=== PATIENT | male | born 1980 | race Caucasian/White ===

== ENCOUNTER 2016-05-30 20:46 | Emergency (ER) | payer MEDICAID ==
[~2016-05-30] VITALS: Ht 182.9 cm; Wt 79.4 kg
[~2016-05-30 20:46] MED LIST: AMIT10TA6 PO; CLON2TAB4 PO; MIRT45TA5 PO; OMEP20CA10 PO; QUET100T PO; QUET200T PO
--- NOTE | 2016-05-30 21:28 | NUR ---
PT WAS TOLD TO GO TO 1B,WANTED TO SPEND THE WHOLE NIGHT HERE,ASK WHO THE DR IS,AND HE SAID HE WILL GO TO ANOTHER HOSP TO SLEEP FOR THE NIGHT.JANEY.
--- NOTE | 2016-05-30 21:39 | NUR ---
ELOPED BEFORE SEEN BY ERMD.
== END 2016-05-30 21:40 | disposition left against medical advice (07) ==
LOC: ER 20:52
DX: Z53.21 Procedure and treatment not carried out due to patient leaving prior to being seen by health care provider (principal)
CPT/HCPCS: A4663

== ENCOUNTER 2016-08-11 00:29 | Emergency (ER) | payer MEDICAID ==
[~2016-08-11] VITALS: Ht 172.7 cm; Wt 68.0 kg
--- NOTE | 2016-08-11 00:38 | NUR ---
Patient brought into ER by rescue accopamied by [employer] from home in four point restraints for C/O overdose of 5 tabs of klonopin of unknown strenghth, police report they were called out to pt's residence due to pt breaking things, yelling at family, and for threatening behavior... pt is alert, oriented x 3, no resp distress noted or reported upon assessment, pt is ...md at bedside...
--- NOTE | 2016-08-11 00:45 | NUR ---
pt is yelling, screaming obcenities, threatening staff, spitting at staff, pt continues on 4 point restraint for his behavior... provided water at pts request...will continue to monitor for safety, comfort, and pain...
[2016-08-11 01:29] LABS: BASOPHILS % (AUTO) 0.3 % (0.0-2.0); EOSINOPHILS # (AUTO) 0.1 K/uL (0.0-0.7); EOSINOPHILS % (AUTO) 0.9 % (0.0-7.0); HEMATOCRIT 33.1 % (40-50); LYMPHOCYTES # (AUTO) 0.9 K/UL (0.8-4.8); MEAN CORPUSCULAR HEMOGLOBIN 27.3 UUG (27.0-31.0); MEAN CORPUSCULAR HGB CONC 33 g/dL (32.0-37.0); MEAN CORPUSCULAR VOLUME 81.9 FL (82.0-92.0); MONOCYTES # (AUTO) 0.4 K/UL (0.1-1.30); NEUTROPHILS # (AUTO) 6.5 K/UL (1.8-8.9); NEUTROPHILS % (AUTO) 81.8 % (38.5-71.5); PLATELET COUNT (AUTO) 254 K/UL (150-450); RED BLOOD CELL COUNT(AUTO) 4.04 MIL/UL (4.7-6.1); WHITE BLOOD COUNT (AUTO) 7.9 K/UL (4.0-11.2)
[2016-08-11 01:43] LABS: ALANINE AMINOTRANSFERASE 21 U/L (16-63); ALKALINE PHOSPHATASE 110 U/L (50-136); ASPARTATE AMINOTRANSFERASE 25 U/L (15-37); BILIRUBIN,DIRECT 0.1 mg/dL (0.0-0.2); BILIRUBIN,TOTAL 0.4 mg/dL (0.2-1.0); CARBON DIOXIDE 25 mmol/L (21-32); CHLORIDE 108 mmol/L (98-107); CREATININE 1.6 mg/dL (0.6-1.3); TOTAL PROTEIN, SERUM 7.7 g/dL (6.4-8.2); UREA NITROGEN, BLOOD 19 mg/dL (7-18)
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
[2016-08-11 01:46] LABS: ETHANOL < 3 MG/DL (0-0)
[2016-08-11 01:47] LABS: ACETAMINOPHEN < 2.0 ug/mL (10-30)
[2016-08-11 01:54] LABS: GLUCOSE 77 mg/dL (74-106)
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
[2016-08-11 04:23] LABS: *BILIRUBIN,URIN NEGATIVE (NEGATIVE); *BLOOD, URINE NEGATIVE (NEGATIVE); *CLARITY,URINE CLEAR (CLEAR); *COLOR,URINE YELLOW (YELLOW); *KETONES,URINE NEGATIVE (NEGATIVE); *PROTEIN,URINE TRACE (NEGATIVE); *UROBILINOGEN,URINE 0.2 E.U./dl (NORMAL); LEUKOCYTE ESTERASE ,URINE NEGATIVE (NEGATIVE); NITRITE, URINE NEGATIVE (NEGATIVE); PH,URINE 5.5 (5.0-8.0); UGLUCOSE NEGATIVE (NEGATIVE)
[2016-08-11 04:30] LABS: RBC,URINE NONE SEEN /HPF (0-3)
[2016-08-11 04:31] LABS: BACTERIA,URINE NONE SEEN /HPF (NONE SEEN); SQUAMOUS EPITHELIAL CELL,UR FEW /HPF (NONE SEEN); WBC,URINE 0-3 /HPF (0-3)
[2016-08-11 04:45] LABS: *AMPHETAMINE, URINE NEGATIVE (NEGATIVE); *BARBITURATE, URINE NEGATIVE (NEGATIVE); *CANNABINOID, URINE POSITIVE (NEGATIVE); *COCCAINE, URINE NEGATIVE (NEGATIVE); *OPIATE, URINE NEGATIVE (NEGATIVE); *PHENCYCLIDINE SCREEN,URINE NEGATIVE (NEGATIVE)
--- NOTE | 2016-08-11 04:55 | NUR ---
SECURITY NOW STANDING OUTSIDE OF DOORWAY, SITTER WAS NEEDED IN ANOTHER DEPT...
--- NOTE | 2016-08-11 05:18 | NUR ---
PER MATEO, CONTACTED [facility] STEAM BLOCKER, CONTACTED FADUMO PEÑA , [facility] STATES HE IS ON HIS WAY....
--- NOTE | 2016-08-11 05:30 | NUR ---
SECURITY NOW SITTING IN ROOM WITH PT...
--- NOTE | 2016-08-11 06:11 | NUR ---
contacted [facility] Non-emergency number , spoke with tumbler machine operator [phone], states paper cutting machine operator will be dispatched as soon as possible...
--- NOTE | 2016-08-11 07:19 | NUR ---
report given to dayshift nurse...
--- NOTE | 2016-08-11 07:40 | NUR ---
[facility] arrived in ER.
--- NOTE | 2016-08-11 08:08 | NUR ---
[employer] bedside, will wait for MD to determine d/c status.
--- NOTE | 2016-08-11 08:10 | NUR ---
Released left wrist from restraint.
--- NOTE | 2016-08-11 08:20 | NUR ---
Released left ankle from restraint, pt willing to use urinal now.
--- NOTE | 2016-08-11 08:22 | NUR ---
[employer] leaving ER, will be in area awaiting recall request by staff if needed.
--- NOTE | 2016-08-11 08:35 | NUR ---
Pt reevaluated by MD, released from restraints per MD
[2016-08-11 09:06] VITALS: BP 125/76
--- NOTE | 2016-08-11 09:06 | NUR ---
Gave pt d/c instructions, verbalized understanding.
--- NOTE | 2016-08-11 09:07 | NUR ---
pt states he will call for a ride. security escorting pt to waiting room.
== END 2016-08-11 09:06 | disposition home or self-care (01) ==
LOC: ER 00:32
DX: F31.9 Bipolar disorder, unspecified (principal); F19.10 Other psychoactive substance abuse, uncomplicated; T42.4X1A Poisoning by benzodiazepines, accidental (unintentional), initial encounter; F17.200 Nicotine dependence, unspecified, uncomplicated; F12.10 Cannabis abuse, uncomplicated; F41.9 Anxiety disorder, unspecified; Y92.89 Other specified places as the place of occurrence of the external cause; Z93.3 Colostomy status
CPT/HCPCS: 36415; 70030-TC; 80307; 85025; A4663; C1758; G0480; G0480-TC

== ENCOUNTER 2016-11-06 00:12 | Emergency (ER) | payer MEDICAID ==
[~2016-11-06] VITALS: Ht 185.4 cm; Wt 86.2 kg
--- NOTE | 2016-11-06 00:16 | NUR ---
[facility] ARRIVED WITH THE PT. DR PIERCE SAW THE PT AND VERBALLY STATED THAT THE PT WAS ON A 5150 PER ER MD. I THEN CALLED SECURITY FOR A SITTER, AND WAS INFORMED THAT NO SECURIRTY AVAIL CAIT DORSEY ONLY 2 CAME TO WORK. I THEN INFORMED THE PT THAT HE COULD NOT LEAVE THAT HE WAS ON A 5150 HOLD AND THAT THE DOCTOR HAD STATED IF HE ATTEMPTED TO LEAVE I WAS TO PLACE RESTRAINTS ON. THE PT AGREED THAT HE WOULD STAY ON THE GUERNEY AND NOT LEAVE. PT AT THIS TIME TALKING TO HIMSELF OUTLOUD.
[2016-11-06 00:57] LABS: BASOPHILS % (AUTO) 0.3 % (0.0-2.0); EOSINOPHILS # (AUTO) 0.1 K/uL (0.0-0.7); EOSINOPHILS % (AUTO) 1.5 % (0.0-7.0); HEMATOCRIT 35.2 % (40-50); HEMOGLOBIN 11.4 G/DL (14.0-18.0); LYMPHOCYTES # (AUTO) 0.7 K/UL (0.8-4.8); LYMPHOCYTES % (AUTO) 8.7 % (20.5-51.5); MEAN CORPUSCULAR HEMOGLOBIN 26.6 UUG (27.0-31.0); MEAN CORPUSCULAR HGB CONC 33 g/dL (32.0-37.0); MONOCYTES # (AUTO) 0.3 K/UL (0.1-1.30); MONOCYTES % (AUTO) 4.2 % (0.0-11.0); NEUTROPHILS # (AUTO) 6.6 K/UL (1.8-8.9); NEUTROPHILS % (AUTO) 85.3 % (38.5-71.5); PLATELET COUNT (AUTO) 258 K/UL (150-450); WHITE BLOOD COUNT (AUTO) 7.7 K/UL (4.0-11.2)
[2016-11-06 01:08] LABS: CARBON DIOXIDE 29 mmol/L (21-32); CHLORIDE 107 mmol/L (98-107); CREATININE 1.5 mg/dL (0.6-1.3); GLUCOSE 107 mg/dL (74-106); POTASSIUM 4.2 mmol/L (3.5-5.1); UREA NITROGEN, BLOOD 24 mg/dL (7-18)
[2016-11-06 01:20] LABS: ETHANOL < 3 MG/DL (0-0)
[2016-11-06 01:21] LABS: THYROID STIMULATING HORMONE 1.038 mIU/mL (0.358-3.740)
[2016-11-06 01:22] LABS: ALANINE AMINOTRANSFERASE 33 U/L (16-63); ALKALINE PHOSPHATASE 126 U/L (50-136); ASPARTATE AMINOTRANSFERASE 18 U/L (15-37); BILIRUBIN,DIRECT 0.1 mg/dL (0.0-0.2); BILIRUBIN,TOTAL 0.2 mg/dL (0.2-1.0); TOTAL PROTEIN, SERUM 7.3 g/dL (6.4-8.2)
[2016-11-06 01:24] LABS: ACETAMINOPHEN < 2.0 ug/mL (10-30)
--- NOTE | 2016-11-06 01:40 | NUR ---
LAB MARÍA THE BLOOD/URINE SENT/PT GIVEN GRAM CRACKERS AND MILK, ALSO WARM BLANKET GIVEN, ADVISED THE PT TO SLEEP AND TO STAY ON THE GUERNEY.
[2016-11-06 01:49] LABS: *BILIRUBIN,URIN NEGATIVE (NEGATIVE); *BLOOD, URINE NEGATIVE (NEGATIVE); *CLARITY,URINE CLEAR (CLEAR); *COLOR,URINE YELLOW (YELLOW); *KETONES,URINE NEGATIVE (NEGATIVE); *PROTEIN,URINE TRACE (NEGATIVE); *UROBILINOGEN,URINE 0.2 E.U./dl (NORMAL); LEUKOCYTE ESTERASE ,URINE NEGATIVE (NEGATIVE); NITRITE, URINE NEGATIVE (NEGATIVE); PH,URINE 5.5 (5.0-8.0); UGLUCOSE NEGATIVE (NEGATIVE)
[2016-11-06 01:57] LABS: BACTERIA,URINE NONE SEEN /HPF (NONE SEEN); RBC,URINE 0-3 /HPF (0-3); SQUAMOUS EPITHELIAL CELL,UR FEW /HPF (NONE SEEN); WBC,URINE 0-3 /HPF (0-3)
[2016-11-06 02:07] LABS: *AMPHETAMINE, URINE NEGATIVE (NEGATIVE); *BARBITURATE, URINE NEGATIVE (NEGATIVE); *CANNABINOID, URINE POSITIVE (NEGATIVE); *COCCAINE, URINE NEGATIVE (NEGATIVE); *OPIATE, URINE NEGATIVE (NEGATIVE); *PHENCYCLIDINE SCREEN,URINE NEGATIVE (NEGATIVE)
--- NOTE | 2016-11-06 02:35 | NUR ---
CALLED RAFAEL HOLLIS THE PET SUPERVISOR BRAIDING, STATED HE WOULD BE IN AT ABOUT 0630.
--- NOTE | 2016-11-06 05:24 | NUR ---
PT IN BED, NO DISTRESS NOTED, WATCHING TV.
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
--- NOTE | 2016-11-06 07:22 | NUR ---
SBAR REPORT TO SONAM RN, PT WATCHING TV.
--- NOTE | 2016-11-06 07:25 | NUR ---
No copy of 5150 from police made or seen in chart or ER registration or doctor's file, pending RAFAEL Hawkins to evaluate patient at this time
--- NOTE | 2016-11-06 07:36 | NUR ---
Breakfast tray ordered. Patient is calm & cooperative at this time, still for psych evaluation
--- NOTE | 2016-11-06 08:09 | NUR ---
Patient remains calm & cooperative since 714, "does not meet 5150 psyc HOLD" per therapeutic activities services worker Emir Hawkins, pending discharge papers from ER doctor. Patient ate 90% of breakfast tray.
--- NOTE | 2016-11-06 08:37 | NUR ---
Patient is on the phone, trying to get a ride home.
--- NOTE | 2016-11-06 08:46 | NUR ---
Patient discharged to home in stable conditon. Written and verbal after care instructions given to patient. Patient verbalizes understanding of instructions.
== END 2016-11-06 08:49 | disposition home or self-care (01) ==
LOC: ER 00:12
DX: S09.8XXA Other specified injuries of head, initial encounter (principal); S00.03XA Contusion of scalp, initial encounter; F32.9 Major depressive disorder, single episode, unspecified; S00.81XA Abrasion of other part of head, initial encounter; M54.2 Cervicalgia; Y04.2XXA Assault by strike against or bumped into by another person, initial encounter; Y93.89 Activity, other specified; Y92.89 Other specified places as the place of occurrence of the external cause; Y99.8 Other external cause status
CPT/HCPCS: 36415; 70030-TC; 70450; 72125; 80307; 84443; 85025; 85730; A4663; G0480; G0480-TC

== ENCOUNTER 2016-11-11 17:03 | Inpatient (IN) | payer MEDICAID ==
[~2016-11-11] VITALS: Ht 182.9 cm; Wt 79.4 kg
[2016-11-11] MEDS: MEROPENEM 0.5 G in IV NORMAL SALINE 50 ML IV SCH (00:40)
[2016-11-11] MEDS ORDERED: DIVA500T2 PO (17:14)
[2016-11-11] MEDS ORDERED: IV NORMAL SALINE 1000 ML BAG IV ONE ×2 (17:45→20:00)
[2016-11-11] MEDS ORDERED: VANCOMYCIN IV 1,000 MG in IV DEXTROSE 5% 250 ML IV ONE (17:45)
--- NOTE | 2016-11-11 18:00 | NUR ---
PT IS IN ROOM #2A. DR MUNGUIA EVALUATED THE PT.
[2016-11-11] MEDS ORDERED: VANCOMYCIN IV 200 ML ONE (18:11)
[2016-11-11 18:16] LABS: BASOPHILS # (AUTO) 0.1 K/uL (0.0-8.0); BASOPHILS % (AUTO) 1.1 % (0.0-2.0); EOSINOPHILS % (AUTO) 0.1 % (0.0-7.0); HEMATOCRIT 40.5 % (40-50); HEMOGLOBIN 13.4 G/DL (14.0-18.0); LYMPHOCYTES # (AUTO) 0.5 K/UL (0.8-4.8); LYMPHOCYTES % (AUTO) 5.2 % (20.5-51.5); MEAN CORPUSCULAR HEMOGLOBIN 26.7 UUG (27.0-31.0); MEAN CORPUSCULAR HGB CONC 33 g/dL (32.0-37.0); MONOCYTES # (AUTO) 0.4 K/UL (0.1-1.30); MONOCYTES % (AUTO) 3.9 % (0.0-11.0); NEUTROPHILS % (AUTO) 89.7 % (38.5-71.5); PLATELET COUNT (AUTO) 254 K/UL (150-450)
[2016-11-11 18:17] LABS: CREATININE 1.8 mg/dL (0.6-1.3); POTASSIUM 3.7 mmol/L (3.5-5.1)
[2016-11-11 18:23] LABS: BILIRUBIN,DIRECT 0.3 mg/dL (0.0-0.2); BILIRUBIN,TOTAL 1.1 mg/dL (0.2-1.0); TOTAL PROTEIN, SERUM 8.8 g/dL (6.4-8.2)
--- NOTE | 2016-11-11 18:55 | NUR ---
REPORT WAS GIVEN TO VOCATIONAL TEACHER RN.
--- NOTE | 2016-11-11 19:08 | NUR ---
Received report from NAOMI Nunez. Assumed care of pt at this time. Admission pending.
--- NOTE | 2016-11-11 19:39 | NUR ---
Pt c/o pain. notified. Pt medicated for pain. Will monitor for effects of medication. Order was placed as "misc" 1mg of dilaudid given.
--- NOTE | 2016-11-11 19:44 | NUR ---
Report called to NAOMI Stone. Preparing to transfering pt to the floor.
[2016-11-11] MEDS ORDERED: MISCELLANEOUS MED IV PRN (19:45)
[2016-11-11] MEDS ORDERED: HYDROMORPHONE 2 MG/1 ML DISP.SYRIN ONE (19:52)
[2016-11-11] MEDS ORDERED: ONDANSETRON 4 MG/2 ML VIAL IV PRN (20:00)
[2016-11-11] MEDS ORDERED: VANCOMYCIN IV 200 ML IV ONE (20:00)
[2016-11-11] MEDS ORDERED: ACETAMINOPHEN 325 MG TABLET PO PRN (20:00)
[2016-11-11 20:45] VITALS: BP 130/68
[2016-11-11] MEDS ORDERED: CLONAZEPAM PO SCH (21:00)
[2016-11-11] MEDS ORDERED: Medication Not On Formulary EA (Mirtazapine 1 TAB) PO SCH (21:00)
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
[2016-11-11] MEDS: QUETIAPINE FUMARATE 200 MG TABLET PO SCH (21:42)
[2016-11-11] MEDS ORDERED: QUETIAPINE FUMARATE 200 MG TABLET ONE (21:45)
--- NOTE | 2016-11-11 21:45 | NUR ---
pt given tylenol prn for temperature 100.0. pt refused ice bags and other comfort measures despite education. tolerating IV fluids well.
[2016-11-11] MEDS ORDERED: ACETAMINOPHEN 325 MG TABLET ONE (21:53)
[2016-11-11] MEDS ORDERED: MEROPENEM 500 MG VIAL IV ONE (21:58)
[2016-11-12 00:04] VITALS: BP 116/62
[2016-11-12] MEDS ORDERED: ACETAMINOPHEN 325 MG TABLET PO PRN (01:45)
--- NOTE | 2016-11-12 02:00 | NUR ---
pt temperature 100.7 MD was made aware and pt given tylenol 650mg po one time for increased temp. Will continue to monitor.
[2016-11-12 04:58] VITALS: BP 101/62
[2016-11-12] MEDS ORDERED: MEROPENEM 500 MG VIAL IV ONE (05:25)
[2016-11-12] MEDS: MEROPENEM 0.5 G in IV NORMAL SALINE 50 ML IV SCH ×2 (06:06→13:56)
--- NOTE | 2016-11-12 06:17 | NUR ---
pt sleeping intermittently. Tolerating IV antibiotics well. Pt temp WNL 98.5. No acute distress noted.
[2016-11-12 06:42] LABS: BASOPHILS % (AUTO) 0.5 % (0.0-2.0); EOSINOPHILS # (AUTO) 0.1 K/uL (0.0-0.7); EOSINOPHILS % (AUTO) 1.3 % (0.0-7.0); LYMPHOCYTES # (AUTO) 0.7 K/UL (0.8-4.8); MEAN CORPUSCULAR HEMOGLOBIN 26.7 UUG (27.0-31.0); MEAN CORPUSCULAR HGB CONC 33 g/dL (32.0-37.0); MEAN CORPUSCULAR VOLUME 81.5 FL (82.0-92.0); MONOCYTES # (AUTO) 0.5 K/UL (0.1-1.30); MONOCYTES % (AUTO) 6.5 % (0.0-11.0); NEUTROPHILS # (AUTO) 7.1 K/UL (1.8-8.9); NEUTROPHILS % (AUTO) 83.7 % (38.5-71.5); PLATELET COUNT (AUTO) 210 K/UL (150-450); WHITE BLOOD COUNT (AUTO) 8.4 K/UL (4.0-11.2)
[2016-11-12 06:58] LABS: HEMATOCRIT 34.2 % (40-50); HEMOGLOBIN 11.3 G/DL (14.0-18.0); RED BLOOD CELL COUNT(AUTO) 4.19 MIL/UL (4.7-6.1)
[2016-11-12 07:05] LABS: BILIRUBIN,TOTAL 1.1 mg/dL (0.2-1.0); CREATININE 1.8 mg/dL (0.6-1.3); POTASSIUM 3.5 mmol/L (3.5-5.1)
--- NOTE | 2016-11-12 08:00 | NUR ---
Pt noted swelling on right side of face - offered ice pack. Pt request not to use ice pcak for the mean time due to pt wants to sleep in. right forehead noted blistered skin with greenish fluid inside. Pt not having double vision but unable to open his right eye due to swelling. Pt has good balance when ambulating. Pt denies any c/o pain. IV on left wrist infiltrated. Started new IV on left hand #22 gauge. Discussed plan of care with pt re: fall precaution, pain management, ice pack on swelling. Pt agreeable with plan of care.
[2016-11-12] MEDS ORDERED: PANTOPRAZOLE SODIUM 40 MG VIAL IV SCH (09:00)
[2016-11-12] MEDS: QUETIAPINE FUMARATE 100 MG TABLET PO SCH (09:39)
[2016-11-12] MEDS: DIVALPROEX 500 MG TABLET.DR PO SCH ×2 (09:39→16:21)
[2016-11-12] MEDS ORDERED: CLONAZEPAM 1 MG TABLET PO PRN (09:45)
[2016-11-12] MEDS: VANCOMYCIN IV 1,250 MG in IV DEXTROSE 5% 500 ML IV SCH (09:45)
[2016-11-12 10:08] LABS: IRON, SERUM 17 ug/dL (50-175)
[2016-11-12] MEDS: FAMOTIDINE. 20 MG/2 ML VIAL IV SCH (11:12)
[2016-11-12 11:14] VITALS: BP 113/62
--- NOTE | 2016-11-12 13:27 | NUR ---
Clinical Pharmacy Note: Vancomycin Dosing per Pharmacy Subjective: Vancomycin IV to start on this 36 yo male patient for facial cellulitis Patient had vancomycin 1gm IVPB x1 in ED on 11/11 at 1800 Objective: BUN 22/Scr 1.8 WBC 8.4 Temperature 98.5 ht: 6' wt 175 lb Assessment/Plan: Will start vancomycin 1250mg IVPB Q17hr for a predicted vancomycin steady state trough level of 15.8 mcg/ml. 1st dose is due today at 1000. Will draw a vancomycin trough level prior to the 4th dose of vancomycin (not ordered yet). Will monitor renal function and adjust vancomycin dose, if needed, should renal function change significantly. Will follow daily.
[2016-11-12] MEDS: IV NS 1000 ML 1,000 ML IV PRN (13:56)
[2016-11-12 15:07] VITALS: BP 118/64
[2016-11-12] MEDS: ACETAMINOPHEN 325 MG TABLET PO PRN (16:22)
--- NOTE | 2016-11-12 17:45 | NUR ---
1115 Seroquel and tylenol taken out of pyxsis at machinist 2nd shift.
--- NOTE | 2016-11-12 17:55 | NUR ---
Pt is in no acute distress. Call light is within reach. plan of care effective.
[2016-11-12 20:00] VITALS: BP 113/66
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
[2016-11-12] MEDS: AMITRIPTYLINE HCL 10 MG TABLET PO SCH (21:00)
[2016-11-12] MEDS: QUETIAPINE FUMARATE 200 MG TABLET PO SCH (21:13)
[2016-11-12] MEDS: MIRTAZAPINE 15 MG TABLET PO SCH (21:13)
[2016-11-12] MEDS: PIPERACILLIN/TAZOBACTAM/D5W 3.375 G in PREMIXED 1 EACH IV SCH (21:18)
[2016-11-13] MEDS: VANCOMYCIN IV 1,250 MG in IV DEXTROSE 5% 500 ML IV SCH (03:23)
[2016-11-13 04:00] VITALS: BP 121/62
--- NOTE | 2016-11-13 04:07 | NUR ---
Pt asleep in room. No s/s of reaction to current vancomycin IV antibiotics. No increase swelling present to right facial side. Ice bag applied and states he is still able to see with both eyes.
[2016-11-13 06:33] LABS: EOSINOPHILS # (AUTO) 0.4 K/uL (0.0-0.7); EOSINOPHILS % (AUTO) 5.2 % (0.0-7.0); HEMATOCRIT 30.5 % (40-50); HEMOGLOBIN 10.1 G/DL (14.0-18.0); LYMPHOCYTES # (AUTO) 0.6 K/UL (0.8-4.8); LYMPHOCYTES % (AUTO) 7.7 % (20.5-51.5); MEAN CORPUSCULAR HEMOGLOBIN 27.1 UUG (27.0-31.0); MEAN CORPUSCULAR HGB CONC 33 g/dL (32.0-37.0); MEAN CORPUSCULAR VOLUME 81.8 FL (82.0-92.0); MONOCYTES # (AUTO) 0.4 K/UL (0.1-1.30); MONOCYTES % (AUTO) 5.2 % (0.0-11.0); NEUTROPHILS # (AUTO) 6.5 K/UL (1.8-8.9); NEUTROPHILS % (AUTO) 81.9 % (38.5-71.5); PLATELET COUNT (AUTO) 210 K/UL (150-450); RED BLOOD CELL COUNT(AUTO) 3.73 MIL/UL (4.7-6.1); WHITE BLOOD COUNT (AUTO) 7.9 K/UL (4.0-11.2)
[2016-11-13] MEDS: PIPERACILLIN/TAZOBACTAM/D5W 3.375 G in PREMIXED 1 EACH IV SCH ×3 (06:43→23:58)
[2016-11-13 07:24] LABS: CREATININE 1.5 mg/dL (0.6-1.3); MAGNESIUM 1.8 mg/dL (1.8-2.4); PHOSPHOROUS 2.5 mg/dL (2.5-4.9); POTASSIUM 3.9 mmol/L (3.5-5.1)
--- NOTE | 2016-11-13 08:00 | NUR ---
AWAKE ALERT COOPERATE NO SOB OR PAIN AT THIS TIME UP AMB WELL ICE PK ON FACE RESTING IN ROOM WITH CALL AJ IN REACH
[2016-11-13] MEDS: DIVALPROEX 500 MG TABLET.DR PO SCH ×3 (08:33→17:00)
[2016-11-13] MEDS: FAMOTIDINE. 20 MG/2 ML VIAL IV SCH (08:33)
[2016-11-13] MEDS: QUETIAPINE FUMARATE 100 MG TABLET PO SCH (08:33)
[2016-11-13] MEDS: IV NS 1000 ML 1,000 ML IV PRN (08:39)
--- NOTE | 2016-11-13 10:00 | NUR ---
DR DELUCAN SEEN PATIENT AND LAB RESULT AND ORDER IN CHART
[2016-11-13 11:20] VITALS: BP 120/60
--- NOTE | 2016-11-13 12:23 | NUR ---
Clinical Pharmacy Note: Vancomycin Dosing per Pharmacy Subjective: Vancomycin IV to continue on this 36 yo male patient for facial cellulitis Objective: BUN 20/Scr 1.5 WBC 7.9 Temperature 98.4 ht: 6' wt 175 lb Assessment/Plan: Since srcr has decreased, will change vanco dose from vancomycin 1250mg IVPB Q17hr to vancomycin 1250mg IVPB q15h for predicted vanco trough level of 15 mcg/ml at steady state. 2nd dose is due today at 1800. Will draw a vancomycin trough level prior to the 4th dose of vancomycin (not ordered yet). Will monitor renal function and adjust vancomycin dose, if needed, should renal function change significantly. Will follow daily.
[2016-11-13] MEDS: ACETAMINOPHEN 325 MG TABLET PO PRN (14:29)
[2016-11-13 15:12] VITALS: BP 146/73
[2016-11-13] MEDS: HYDROCODONE/APAP 5-325MG TABLET PO PRN (16:53)
[2016-11-13] MEDS ORDERED: VANCOMYCIN IV 1,250 MG in IV DEXTROSE 5% 500 ML IV SCH (18:00)
--- NOTE | 2016-11-13 18:00 | NUR ---
STABLE CONDITION PAIN UNDER CONTROL SAFETY MEASURE PROVIDED CALL AJ IN REACH
--- NOTE | 2016-11-13 19:20 | NUR ---
PATIENT AWAKE, AMBULATE AND SMOKE TO THE PATIO, NO SOB NO CHEST PAIN, CONT TO MONITOR.
[2016-11-13 20:18] VITALS: BP 116/61
--- NOTE | 2016-11-13 22:00 | NUR ---
PATIENT REFUSED SCHEDULED MEDICATIONS, WANTING TO SMOKE TO THE PATIO, EXPLAINED TO PATIENT THAT ITS LATE NIGHT AND SMOKING PATIO IS CLOSED FOR THE DAY. ASKED PATIENT TO STAY IN HIS ROOM.
[2016-11-13] MEDS ORDERED: LACTOBACILLUS RHAMNOSUS GG 1 EACH CAPSULE ONE (22:10)
[2016-11-13] MEDS: MIRTAZAPINE 15 MG TABLET PO SCH (23:57)
[2016-11-13] MEDS: AMITRIPTYLINE HCL 10 MG TABLET PO SCH (23:57)
[2016-11-13] MEDS: LACTOBACILLUS RHAMNOSUS GG 1 EACH CAPSULE PO SCH (23:57)
[2016-11-13] MEDS: QUETIAPINE FUMARATE 200 MG TABLET PO SCH (23:58)
[2016-11-14 04:00] VITALS: BP 138/78
--- NOTE | 2016-11-14 04:24 | NUR ---
PATIENT IV SITE INFILTRATED, TRIED TO REINSERT IV BUT REFUSED START CURSING STAFF. USING FOUL LANGUAGES. WILL CONTINUE TO OFFER. .
--- NOTE | 2016-11-14 05:36 | NUR ---
PATIENT IN ROOM AWAKE ALERT, STILL REFUSED TO RE INSERT PERIPHERAL IV KEPT SAYING LATER, LATER, PATIENT GET AGITATED WHEN TRIED TO PUSH TO COOPERATE WITH CARE, WILL CONTINUE TO OFFER,
[2016-11-14] MEDS: PIPERACILLIN/TAZOBACTAM/D5W 3.375 G in PREMIXED 1 EACH IV SCH ×3 (06:00→21:53)
--- NOTE | 2016-11-14 06:50 | NUR ---
PATIENT IV ON LEFT HAND INFILTRATED, OFFER TO REINSERT IV LINE TO DIFFERENT SITE BUT REFUSED, PATIENT GET AGITATED, CURSING WITH FOUL LANGUAGE, UNABLE TO GIVE 0600 IV ABX. ENDORSE TO NEXT SHIFT.
--- NOTE | 2016-11-14 08:30 | NUR ---
AWAKE NO PAIN OR SOB SWELLING LESS AT RT SIDE OF FACE IV INFILTRATE D/C AT THIS TIME REFUSED TO RESTART AT THIS TIME WILL DO IT LATER RESTING WELL WITH CALL AJ IN REACH
[2016-11-14] MEDS: QUETIAPINE FUMARATE 100 MG TABLET PO SCH (09:00)
[2016-11-14] MEDS: DIVALPROEX 500 MG TABLET.DR PO SCH ×2 (09:00→17:00)
--- NOTE | 2016-11-14 09:30 | NUR ---
REFUSED PO MEDICINE THIS AM DR MARTINEZ WAS NOTIFY
--- NOTE | 2016-11-14 10:00 | NUR ---
REFUSED TO RESTART A NEW IV LINE FOR ANTIBIOTICS DR MARTINEZ WAS INFORM NO NEW ORDER WILL TRY AGAIN
[2016-11-14 12:00] VITALS: BP 122/71
--- NOTE | 2016-11-14 12:30 | NUR ---
RESTART A NEW IV LINE BUT UNABLE TO INSERT IT PATIENT START ANXIUOS AND REQUEST TO DO AGAIN LATER DR MARTINEZ WAS INFORM STATE WILL CHANGE ANTIBIOTICS TO PO
[2016-11-14] MEDS ORDERED: VANCOMYCIN IV 1,250 MG in IV DEXTROSE 5% 500 ML IV SCH (13:00)
[2016-11-14] MEDS: LACTOBACILLUS RHAMNOSUS GG 1 EACH CAPSULE PO SCH ×2 (13:03→21:53)
[2016-11-14] MEDS: FAMOTIDINE 20 MG TABLET PO SCH (13:03)
--- NOTE | 2016-11-14 14:05 | NUR ---
Clinical Pharmacy Note: Vancomycin Dosing per Pharmacy Subjective: Vancomycin IV to continue on this 36 yo male patient for facial cellulitis Objective: BUN 20/Scr 1.5 (11/13) WBC 7.9 (11/13) Temperature 97.4 ht: 6' wt 175 lb Assessment/Plan: IV line infiltrated this am. he refused to allow re-insertion. 0400 dose of vanco was not given. Since no new labs (srcr), will reschedule & continue same dose of vancomycin 1250mg IVPB q15h for today when line is in place. Ordered BMP for am. Pharmacy will review srcr and adjust the dose if needed. Will draw a vancomycin trough level prior to the 4th dose of vancomycin (not ordered yet). Will follow daily. Addendum: 11/14/16 at 1651 by TATE PULIDO NAOMI STARTED VANCO 1GM IV Q15H AT 1639, WILL RE-ADJUST DOSE
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
--- NOTE | 2016-11-14 15:00 | NUR ---
START A NEW LINE ON LFA AND CONTINUE ANTIBIOTICS VANCO/ ZOSYN AT THIS TIME PATIENT DOES NOT COOPERATE AND VERY BARNES AT THIS TIME
[2016-11-14 16:00] VITALS: BP 108/69
--- NOTE | 2016-11-14 17:00 | NUR ---
CONDITION STABLE DISCONNECT IV SELF AND AMB IN THE RAJAN WAY AT THIS TIME WILL CONTINUE IVPB AGAIN
--- NOTE | 2016-11-14 17:22 | NUR ---
STABLE CONDITION SAFETY MEASURE PROVIDED CALL LIGHT IN REACH NO PAIN OR SOB
[2016-11-14] MEDS: HYDROCODONE/APAP 5-325MG TABLET PO PRN (18:50)
--- NOTE | 2016-11-14 19:25 | NUR ---
RECEIVED PATIENT IN ROOM, MOTHER AT BEDSIDE, NO COMPLAIN OF PAIN AT THIS TIME. PATIENT SMOKE AT THE PATIO. NOTED PATIENT AGITATED DURING INTERACTION WITH THE MOTHER. PATIENT VERBALIZED THAT HE WORRIED ABOUT THE COURT APPT TOMORROW. MOTHER MADE ARRANGEMENT FOR THE PATIENT TOMORROW.
[2016-11-14 20:00] VITALS: BP 125/61
[2016-11-14] MEDS: QUETIAPINE FUMARATE 200 MG TABLET PO SCH (21:53)
[2016-11-14] MEDS: MIRTAZAPINE 15 MG TABLET PO SCH (21:53)
[2016-11-14] MEDS: AMITRIPTYLINE HCL 10 MG TABLET PO SCH (21:54)
--- NOTE | 2016-11-14 22:30 | NUR ---
PATIENT AMBULATE IN THE HALLWAYS, STILL UPSET REGARDING HIS LEGAL PROBLEMS, REDIRECT PATIENT TO STAY IN HIS ROOM, AND OFFERED FOOD OR JUICES. PATIENT REFUSED IV HYDRATION, REMOVES HIS IV HYDRATION, RESPECT PATIENT WISHES, PATIENT STAY IN HIS ROOM AT THIS TIME.
[2016-11-15] MEDS: PIPERACILLIN/TAZOBACTAM/D5W 3.375 G in PREMIXED 1 EACH IV SCH ×3 (08:00→21:50)
[2016-11-15] MEDS: QUETIAPINE FUMARATE 100 MG TABLET PO SCH (10:24)
[2016-11-15] MEDS: FAMOTIDINE 20 MG TABLET PO SCH (10:24)
[2016-11-15] MEDS: DIVALPROEX 500 MG TABLET.DR PO SCH ×2 (10:24→17:40)
[2016-11-15] MEDS: LACTOBACILLUS RHAMNOSUS GG 1 EACH CAPSULE PO SCH ×2 (10:28→21:35)
[2016-11-15] MEDS ORDERED: MORPHINE SULFATE 2 MG/1 ML DISP.SYRIN IV ONE ×2 (10:30→17:00)
[2016-11-15] MEDS: VANCOMYCIN IV 1,250 MG in IV DEXTROSE 5% 500 ML IV SCH ×2 (10:40→23:48)
[2016-11-15 11:16] LABS: BASOPHILS % (AUTO) 0.1 % (0.0-2.0); EOSINOPHILS # (AUTO) 0.3 K/uL (0.0-0.7); EOSINOPHILS % (AUTO) 5.2 % (0.0-7.0); HEMATOCRIT 30.9 % (40-50); HEMOGLOBIN 9.7 G/DL (14.0-18.0); LYMPHOCYTES # (AUTO) 0.6 K/UL (0.8-4.8); LYMPHOCYTES % (AUTO) 10.7 % (20.5-51.5); MEAN CORPUSCULAR HGB CONC 32 g/dL (32.0-37.0); MEAN CORPUSCULAR VOLUME 82.5 FL (82.0-92.0); MONOCYTES # (AUTO) 0.4 K/UL (0.1-1.30); MONOCYTES % (AUTO) 7.2 % (0.0-11.0); NEUTROPHILS % (AUTO) 76.8 % (38.5-71.5); PLATELET COUNT (AUTO) 288 K/UL (150-450); RED BLOOD CELL COUNT(AUTO) 3.75 MIL/UL (4.7-6.1); WHITE BLOOD COUNT (AUTO) 5.3 K/UL (4.0-11.2)
[2016-11-15 11:26] LABS: CREATININE 1.5 mg/dL (0.6-1.3); MAGNESIUM 1.6 mg/dL (1.8-2.4); POTASSIUM 3.9 mmol/L (3.5-5.1)
[2016-11-15 11:58] VITALS: BP 112/63
--- NOTE | 2016-11-15 13:56 | NUR ---
Patient given letter that he requested. Dr. Francisco Shah signed.
--- NOTE | 2016-11-15 14:12 | NUR ---
Clinical Pharmacy Note: Vancomycin Dosing per Pharmacy Subjective: Vancomycin IV to continue on this 36 yo male patient for facial cellulitis Objective: BUN 18 Scr 1.5 WBC 5.3 Temperature 98.6 ht: 6' wt 175 lb Assessment/Plan: Patient's iv was re-inserted yesterday and dose was given late and therefore rescheduled to vanco 1gm q15hr with first dose being 1639 yesterday. Third dose will be given tonight at 2030. Trough before 4th scheduled dose will be tomorrow at 1300 (ordered). Will check trough tomorrow and adjust as needed. Will continue to follow
--- NOTE | 2016-11-15 15:18 | NUR ---
pt seen on rounding. vitals stable. no signs of acute distress. pt may seem beligerent but follows commands as instructed. no signs of infection on wound. cellulitis improving. pt refused antibiotics at first but instructed about risks and benefits. pt understands and took all antibiotics as prescribed. pt took meds as prescribed and was given morphine one time for generalized pain. will continue to monitor.
--- NOTE | 2016-11-15 15:20 | NUR ---
pt seen by dr zamorano. wants to give po meds. pt continues to step out of the hospital to smoke cigarettes. will continue to monitor for complications.
[2016-11-15 15:26] VITALS: BP 110/60
--- NOTE | 2016-11-15 19:19 | NUR ---
pt stable thorughout the day. pt instructed about risks and benefits of not taking meds. pt verbalizes understanding and took meds as prescribed. pt given pain meds as needed. no injuiries noted. pt kept going out to smoke. iv site patent and intact. will endorse to cadd manager nurse.
[2016-11-15] MEDS ORDERED: MAGNESIUM OXIDE 400 MG TABLET PO ONE (19:30)
--- NOTE | 2016-11-15 20:21 | NUR ---
PATIENT IN BED, IV MACHINE IS BEEPING, CHECKED THE MACHINE AND PATIENT DISCONNECT HIMSELF FROM IV HYDRATION, GETS VERBALLY ABUSIVE, CURSING STAFF, AND INTEMEDATE STAFF WITH FOUL LANGUAGES, DR RUBY MARTINEZ NOTIFIED, WITH ORDER TO DISCONTINUE IV HYDRATION.
[2016-11-15 20:56] VITALS: BP 116/72
[2016-11-15] MEDS: QUETIAPINE FUMARATE 200 MG TABLET PO SCH (21:34)
[2016-11-15] MEDS: MIRTAZAPINE 15 MG TABLET PO SCH (21:34)
[2016-11-15] MEDS: AMITRIPTYLINE HCL 10 MG TABLET PO SCH (21:34)
[2016-11-15] MEDS: HYDROCODONE/APAP 5-325MG TABLET PO PRN (23:48)
--- NOTE | 2016-11-16 04:26 | NUR ---
PATIENT CONTINUE TO REFUSED VITAL SIGNS TO BE TAKEN.
[2016-11-16 05:26] VITALS: BP 123/66
[2016-11-16] MEDS: PIPERACILLIN/TAZOBACTAM/D5W 3.375 G in PREMIXED 1 EACH IV SCH (06:14)
[2016-11-16] MEDS: DIVALPROEX 500 MG TABLET.DR PO SCH ×2 (08:24→08:26)
[2016-11-16] MEDS: LACTOBACILLUS RHAMNOSUS GG 1 EACH CAPSULE PO SCH (08:24)
[2016-11-16] MEDS: FAMOTIDINE 20 MG TABLET PO SCH (08:24)
[2016-11-16] MEDS: QUETIAPINE FUMARATE 100 MG TABLET PO SCH (08:24)
--- NOTE | 2016-11-16 09:32 | NUR ---
pt seen on rounding. pt vitals stable. pt refused depakote and took other meds as prescribed. pt requested morphine. pt is beligerent and continues to walk out to smoke for a cigarette. pt continues to remove iv. WIll continue to monitor
[2016-11-16] MEDS ORDERED: MORPHINE SULFATE 2 MG/1 ML DISP.SYRIN IV ONE (11:30)
[2016-11-16 12:00] VITALS: BP 135/71
[2016-11-16] MEDS ORDERED: SULF1TAB47 PO (15:16)
[2016-11-16] MEDS ORDERED: HYDR-3326 PO (15:16)
[2016-11-16 16:38] VITALS: BP 139/85
--- NOTE | 2016-11-16 18:10 | NUR ---
pt discharged 1800. pt vitals stable. pt gievn discharge insturctions along with discharge summary. pt requested and extra copies and provided. all belongings list reconciled and signed. discharge instructions signed. pt given prescription for bactrim and norco 5 325 q 8 hrs.pt photos taken in chart. vitals signs stable. no signs of acute distress. pt discharged.
== END 2016-11-16 18:10 | disposition home or self-care (01) | DRG 720 ==
LOC: ER 17:05 → TELE 18:44 → MED 11-12 14:48
PROVIDERS: ATTEND Internal Medicine
DX: A41.9 Sepsis, unspecified organism (principal); N17.0 Acute kidney failure with tubular necrosis; E44.0 Moderate protein-calorie malnutrition; K50.90 Crohn's disease, unspecified, without complications; F17.210 Nicotine dependence, cigarettes, uncomplicated; D50.0 Iron deficiency anemia secondary to blood loss (chronic); L03.211 Cellulitis of face; R65.20 Severe sepsis without septic shock; F31.9 Bipolar disorder, unspecified; Z82.3 Family history of stroke; Z82.49 Family history of ischemic heart disease and other diseases of the circulatory system; S00.01XD Abrasion of scalp, subsequent encounter; W19.XXXD Unspecified fall, subsequent encounter; Z68.23 Body mass index [BMI] 23.0-23.9, adult; Z91.14 Patient's other noncompliance with medication regimen; Z91.19 Patient's noncompliance with other medical treatment and regimen; Z90.49 Acquired absence of other specified parts of digestive tract; F20.9 Schizophrenia, unspecified; D63.8 Anemia in other chronic diseases classified elsewhere; S00.03XD Contusion of scalp, subsequent encounter; G40.909 Epilepsy, unspecified, not intractable, without status epilepticus; Z79.899 Other long term (current) drug therapy; R73.9 Hyperglycemia, unspecified; G89.29 Other chronic pain; M54.5 Low back pain; R51 Headache; N18.9 Chronic kidney disease, unspecified
CPT/HCPCS: 36415; 70450; 71010; 83550; 83605; 83690; 83735; 84100; 85025; 87040; 87070; 87086; 93005; A4663; J1170; J2185; J2270; J2543; J3370; J3490; J7030; J7060

== ENCOUNTER 2018-03-15 01:20 | Emergency (ER) | payer OTHER ==
[~2018-03-15] VITALS: Ht 185.4 cm; Wt 89.4 kg
[~2018-03-15 01:20] MED LIST changes: +CLON2TAB11 PO; -CLON2TAB4 PO; +DIVA500T2 PO; -MIRT45TA5 PO; +MIRT45TA83 PO; -OMEP20CA10 PO; +SULF1TAB47 PO
--- NOTE | 2018-03-15 01:45 | NUR ---
patient came walking ,aaox4/maex4,as per patient his having abdominal pain and diarhea for 6 weeks .no respiratory distress noted .
[2018-03-15] MEDS ORDERED: KETOROLAC TROMETHAMINE 15 MG INJ IV ONE (02:30)
[2018-03-15] MEDS ORDERED: KETOROLAC TROMETHAMINE 15 MG INJ ONE (02:41)
[2018-03-15 02:43] LABS: BASOPHILS % (AUTO) 0.3 % (0.0-2.0); EOSINOPHILS # (AUTO) 0.1 K/uL (0.0-0.7); EOSINOPHILS % (AUTO) 0.8 % (0.0-7.0); HEMATOCRIT 33.9 % (36.7-47.1); HEMOGLOBIN 11.1 g/dL (12.5-16.3); LYMPHOCYTES % (AUTO) 10.4 % (20.5-51.5); MEAN CORPUSCULAR HGB CONC 33 g/dL (32.5-36.3); MEAN CORPUSCULAR VOLUME 73.4 fL (73.0-96.2); MONOCYTES # (AUTO) 0.5 K/uL (2.0-10.0); MONOCYTES % (AUTO) 5.7 % (0.0-11.0); NEUTROPHILS # (AUTO) 7.8 K/uL (1.8-8.9); NEUTROPHILS % (AUTO) 82.8 % (38.5-71.5); PLATELET COUNT (AUTO) 464 K/uL (152-348); RED BLOOD CELL COUNT(AUTO) 4.62 MIL/uL (4.06-5.63); WHITE BLOOD COUNT (AUTO) 9.4 K/uL (3.6-10.2)
[2018-03-15 02:50] LABS: CREATININE 1.7 mg/dL (0.6-1.3); POTASSIUM 3.1 mmol/L (3.5-5.1)
[2018-03-15 02:56] LABS: BILIRUBIN,DIRECT 0.2 mg/dL (0.0-0.2); BILIRUBIN,TOTAL 0.4 mg/dL (0.2-1.0); TOTAL PROTEIN, SERUM 8.3 g/dL (6.4-8.2)
[2018-03-15] MEDS ORDERED: IV NORMAL SALINE 1000 ML BAG IV ONE ×2 (03:00→08:00)
--- NOTE | 2018-03-15 04:05 | NUR ---
Dr. Socorro GRIFFIN MD spoke with [facility]transfer.
--- NOTE | 2018-03-15 04:06 | NUR ---
Face sheet + clinicals (summary report) faxed over to [facility].
[2018-03-15] MEDS ORDERED: POTASSIUM CHLORIDE 20 MEQ TAB.PRT.SR PO ONE (04:15)
[2018-03-15] MEDS ORDERED: POTASSIUM CHLORIDE 20 MEQ TAB.PRT.SR ONE (04:19)
--- NOTE | 2018-03-15 04:57 | NUR ---
spoked with estephania garcia,nursing retail shift supervisor regarding update for transfer & bed availability. still pending info and was told to call preaccess airline managerial supervisor.
--- NOTE | 2018-03-15 05:11 | NUR ---
porter sample case contacted for update still waiting for a bed . authoriazation for ambulance [id number] ,use [facility] or [facility] .
--- NOTE | 2018-03-15 06:19 | NUR ---
Spoke with nursing computer operations supervisor Tavia from [facility] regarding update on bed info. was transferred & spoke to Romeo (pre-access management) & was told to fax summary to [phone].
--- NOTE | 2018-03-15 07:03 | NUR ---
Spoke with Romeo from [facility] with transfer info: pt to be transferred to [facility] Bed 2251. phone number for report is [phone] authoirzation number for ambulance is [id number]. use [facility] or [facility]
--- NOTE | 2018-03-15 07:14 | NUR ---
Spoke with [facility] and was told no ambulance availability for transfer at this time due to short staff.
--- NOTE | 2018-03-15 07:15 | NUR ---
Report given to day shift nurse
--- NOTE | 2018-03-15 07:34 | NUR ---
SPOKE TO ANIMAL HUSBANDRY MANAGER BENJI FROM [facility] . SHE ADVISED TO CALL "AMBULANCE" COMPANY FOR PT's TRANSFER. [facility] WAS CALLED. TRIP # [id number]. MARII IS 45 MINUTES.
--- NOTE | 2018-03-15 07:46 | NUR ---
REPORT GIVEN TO [facility] NAOMI APPIAH. PT IS RESTING IN BED COMFORTABLY. NO S/S OF ACUTE DISTRESS AT THIS TIME.
--- NOTE | 2018-03-15 08:32 | NUR ---
PT WAS TRANSFERED TO [facility]IA [facility], ROOM # 2251. NO S/S OF ACUTE DISTRESS AT THE TIME OF TRANSFER.
== END 2018-03-15 08:37 | disposition short-term general hospital (02) ==
LOC: ER 01:23
DX: R10.84 Generalized abdominal pain (principal); E87.6 Hypokalemia; D64.9 Anemia, unspecified; J02.9 Acute pharyngitis, unspecified; K08.89 Other specified disorders of teeth and supporting structures; R19.7 Diarrhea, unspecified; G89.29 Other chronic pain; M54.5 Low back pain; F17.200 Nicotine dependence, unspecified, uncomplicated; F11.10 Opioid abuse, uncomplicated; F12.10 Cannabis abuse, uncomplicated
CPT/HCPCS: 36415; 74176; 80048; 80076; 83690; 85025; 96361; 96374; 99285; J1885; A4663; J7030

== ENCOUNTER 2018-03-27 23:08 | Emergency (ER) | payer OTHER ==
[~2018-03-27] VITALS: Ht 177.8 cm; Wt 83.9 kg
--- NOTE | 2018-03-27 23:58 | NUR ---
Patient in bed, no acute distress noted. VSS. Pending ER MD evaluation.
--- NOTE | 2018-03-28 00:43 | NUR ---
Phlebotomy at bedside for Serum Lab Draw
[2018-03-28 01:00] LABS: BASOPHILS % (AUTO) 0.3 % (0.0-2.0); CREATININE 1.2 mg/dL (0.6-1.3); EOSINOPHILS # (AUTO) 0.1 K/uL (0.0-0.7); EOSINOPHILS % (AUTO) 1.8 % (0.0-7.0); HEMATOCRIT 25.8 % (36.7-47.1); HEMOGLOBIN 8.4 g/dL (12.5-16.3); LYMPHOCYTES # (AUTO) 1.3 K/uL (20.0-40.0); LYMPHOCYTES % (AUTO) 20.1 % (20.5-51.5); MEAN CORPUSCULAR HEMOGLOBIN 24.2 uug (23.8-33.4); MEAN CORPUSCULAR HGB CONC 33 g/dL (32.5-36.3); MEAN CORPUSCULAR VOLUME 74.2 fL (73.0-96.2); MONOCYTES # (AUTO) 0.5 K/uL (2.0-10.0); MONOCYTES % (AUTO) 7.1 % (0.0-11.0); NEUTROPHILS # (AUTO) 4.6 K/uL (1.8-8.9); NEUTROPHILS % (AUTO) 70.7 % (38.5-71.5); PLATELET COUNT (AUTO) 408 K/uL (152-348); POTASSIUM 3.2 mmol/L (3.5-5.1); RED BLOOD CELL COUNT(AUTO) 3.48 MIL/uL (4.06-5.63); WHITE BLOOD COUNT (AUTO) 6.5 K/uL (3.6-10.2)
[2018-03-28 01:07] LABS: BILIRUBIN,DIRECT 0.1 mg/dL (0.0-0.2); BILIRUBIN,TOTAL 0.2 mg/dL (0.2-1.0); TOTAL PROTEIN, SERUM 6.5 g/dL (6.4-8.2)
[2018-03-28 01:16] LABS: EOSINOPHILS % (MANUAL) 2 % (0-8); LYMPHOCYTES % (MANUAL) 24 % (20-40); MONOCYTES % (MANUAL) 4 % (2-10); NEUTROPHILS % (MANUAL) 70 % (42-75)
--- NOTE | 2018-03-28 01:51 | NUR ---
CT/Xray completed. Patient returned to room, no acute distress noted at this time. Denies pain at this time. VSS
--- NOTE | 2018-03-28 02:56 | NUR ---
Patient in bed, no acute distress noted. VSS
--- NOTE | 2018-03-28 03:52 | NUR ---
ELIAS BRITO speaking to [employer] for panel call.
[2018-03-28] MEDS ORDERED: POTASSIUM CHLORIDE 50 ML IV SCH (04:00)
[2018-03-28] MEDS ORDERED: HYDROCODONE/APAP 5-325MG TABLET PO PRN (04:00)
[2018-03-28] MEDS ORDERED: ONDANSETRON 4 MG/2 ML VIAL IV PRN (04:00)
[2018-03-28] MEDS ORDERED: MAGNESIUM HYDROXIDE 30 ML LIQUID UDC PO PRN (04:00)
[2018-03-28] MEDS ORDERED: ACETAMINOPHEN 325 MG TABLET PO PRN (04:00)
[2018-03-28] MEDS ORDERED: IV D5LR 1,000 ML IV PRN (04:00)
[2018-03-28] MEDS ORDERED: Z GUARD REMEDY PASTE 57 GM TUBE TOP PRN (04:00)
--- NOTE | 2018-03-28 04:06 | NUR ---
Patient is agreeable for transfer to [facility]. Pending further updates from Transfer Center.
--- NOTE | 2018-03-28 04:58 | NUR ---
Pending call back from [facility] for patient bed. Auth # is [id number]
--- NOTE | 2018-03-28 05:41 | NUR ---
Patient in bed, no acute distress noted. VSS. Pending inpatient admission.
--- NOTE | 2018-03-28 05:57 | NUR ---
RECIEVED TRANSFER INFO. PATIENT WILL BE GOING TO [facility] ROOM 2259. CALL FOR REPORT #
--- NOTE | 2018-03-28 06:07 | NUR ---
CALLED [facility] TO TRANSFER PATIENT TO [facility] ETA 1030 WITH TRACKING #[id number]
--- NOTE | 2018-03-28 06:13 | NUR ---
Report given to Bianca SALGADO on Med Surg in [facility]. Patient going to room 2259. ETA is 1030.
--- NOTE | 2018-03-28 07:07 | NUR ---
Report given to Savanah SALGADO
--- NOTE | 2018-03-28 07:44 | NUR ---
Breakfast provided, pt ate w/ good appetite.
--- NOTE | 2018-03-28 08:55 | NUR ---
Patient is resting comfortably in bed with eyes closed, NAD noted.
[2018-03-28] MEDS ORDERED: QUETIAPINE FUMARATE 100 MG TABLET PO SCH (09:00)
[2018-03-28] MEDS ORDERED: DIVALPROEX 500 MG TABLET.DR PO SCH (09:00)
[2018-03-28] MEDS ORDERED: PANTOPRAZOLE SODIUM 40 MG VIAL IV SCH (09:00)
[2018-03-28] MEDS ORDERED: HYDROMORPHONE 1 MG/1 ML DISP.SYRIN IV ONE (09:45)
[2018-03-28] MEDS ORDERED: HYDROMORPHONE 1 MG/1 ML DISP.SYRIN ONE (09:47)
--- NOTE | 2018-03-28 10:57 | NUR ---
Report given to EMT transporters. Pt left ER in stable condition. All Pt's belongings sent w/ Pt.
[2018-03-28] MEDS ORDERED: AMITRIPTYLINE HCL 10 MG TABLET PO SCH (18:00)
[2018-03-28] MEDS ORDERED: Medication Not On Formulary EA (Mirtazapine 1 TAB) PO SCH (21:00)
[2018-03-28] MEDS ORDERED: QUETIAPINE FUMARATE 200 MG TABLET PO SCH (21:00)
== END 2018-03-28 11:02 | disposition short-term general hospital (02) ==
LOC: ER 23:08
DX: K50.00 Crohn's disease of small intestine without complications (principal); F17.200 Nicotine dependence, unspecified, uncomplicated; F12.10 Cannabis abuse, uncomplicated; F11.10 Opioid abuse, uncomplicated; F15.10 Other stimulant abuse, uncomplicated; Z90.49 Acquired absence of other specified parts of digestive tract; Z79.899 Other long term (current) drug therapy
CPT/HCPCS: 36415; 71045; 74176; 80048; 80076; 83690; 84484; 85025; 85730; 96374; 99285; J1170; 70030-TC; A4663

== ENCOUNTER 2018-07-04 19:11 | Emergency (ER) | payer OTHER ==
[~2018-07-04 19:11] MED LIST changes: -SULF1TAB47 PO
--- NOTE | 2018-07-04 19:19 | NUR ---
CALLED 3 TIMES AND NO ANSWER AT [phone]. PT LWBT
== END 2018-07-04 19:21 | disposition left against medical advice (07) ==
LOC: ER 19:13
DX: Z53.21 Procedure and treatment not carried out due to patient leaving prior to being seen by health care provider (principal)

== ENCOUNTER 2018-07-04 19:52 | Emergency (ER) | payer OTHER ==
[~2018-07-04] VITALS: Ht 182.9 cm; Wt 79.4 kg
[2018-07-04] MEDS ORDERED: TETRACAINE HCL 0.5% OPHT DROP 2 ML BOTTLE OP ONE (20:45)
[2018-07-04] MEDS ORDERED: FLUORESCEIN SODIUM 1 MG STRIP OP ONE (20:45)
[2018-07-04] MEDS ORDERED: TETRACAINE HCL 0.5% OPHT DROP 2 ML BOTTLE ONE (20:48)
[2018-07-04] MEDS ORDERED: FLUORESCEIN SODIUM 1 MG STRIP ONE (20:48)
--- NOTE | 2018-07-04 20:52 | NUR ---
Patient eloped from facility. ER physician notified.
== END 2018-07-04 20:57 | disposition left against medical advice (07) ==
LOC: ER 19:52
DX: Z53.21 Procedure and treatment not carried out due to patient leaving prior to being seen by health care provider (principal)
CPT/HCPCS: A4663

== ENCOUNTER 2018-07-06 08:39 | Emergency (ER) | payer OTHER ==
[~2018-07-06] VITALS: Ht 185.4 cm; Wt 81.6 kg
--- NOTE | 2018-07-06 08:50 | NUR ---
Pt placed on 5150 hold (DTO) by [employer]. Per [employer] pt is no longer in custody.
[2018-07-06] MEDS ORDERED: FOLI1TAB16 PO (08:58)
[2018-07-06] MEDS ORDERED: RANI300C PO (08:58)
[2018-07-06] MEDS ORDERED: IBUP-1953 PO (08:58)
[2018-07-06] MEDS ORDERED: CLON2TAB11 PO (08:58)
[2018-07-06] MEDS ORDERED: FERR325T28 PO (08:58)
[2018-07-06] MEDS ORDERED: ERGO2000 PO (08:58)
[2018-07-06] MEDS ORDERED: DIVA250T4 PO (08:58)
[2018-07-06] MEDS ORDERED: MIRT15TA7 PO (08:58)
[2018-07-06] MEDS ORDERED: ASCO500P18 PO (08:58)
--- NOTE | 2018-07-06 09:10 | NUR ---
[employer] left and pt is under 1:1 observation by hospital cyber security engineer in room 1b.
[2018-07-06 09:43] LABS: BASOPHILS % (AUTO) 0.3 % (0.0-2.0); EOSINOPHILS % (AUTO) 0.4 % (0.0-7.0); HEMATOCRIT 36.1 % (36.7-47.1); HEMOGLOBIN 11.6 g/dL (12.5-16.3); LYMPHOCYTES # (AUTO) 0.9 K/uL (20.0-40.0); LYMPHOCYTES % (AUTO) 15.2 % (20.5-51.5); MEAN CORPUSCULAR HEMOGLOBIN 24.7 uug (23.8-33.4); MEAN CORPUSCULAR HGB CONC 32 g/dL (32.5-36.3); MEAN CORPUSCULAR VOLUME 77.1 fL (73.0-96.2); MONOCYTES # (AUTO) 0.4 K/uL (2.0-10.0); MONOCYTES % (AUTO) 6.4 % (0.0-11.0); NEUTROPHILS # (AUTO) 4.4 K/uL (1.8-8.9); NEUTROPHILS % (AUTO) 77.7 % (38.5-71.5); PLATELET COUNT (AUTO) 312 K/uL (152-348); RED BLOOD CELL COUNT(AUTO) 4.68 MIL/uL (4.06-5.63); WHITE BLOOD COUNT (AUTO) 5.6 K/uL (3.6-10.2)
--- NOTE | 2018-07-06 09:45 | NUR ---
PATIENT IS IN A HOSPITAL GOWN, ALL BELONGINGS PLACED OUTSIDE OF HIS ROOM SECURED IN NURSES STATION. SECURITY AND NURSING STAFF DID A SAFETY INSPECTION WITH METAL DETECTOR WAND. PATIENT HAS A WARM BLANKET ON, LYING DOWN WITH HIS HEAD ELEVATED, WATCHING TV. CALL LIGHT IN REACH. SECURITY AT BEDSIDE.
[2018-07-06 09:48] LABS: CARBON DIOXIDE 30 mmol/L (21-32); CHLORIDE 107 mmol/L (98-107); CREATININE 1.3 mg/dL (0.6-1.3); GLUCOSE 91 mg/dL (74-106); UREA NITROGEN, BLOOD 13 mg/dL (7-18)
[2018-07-06 09:49] LABS: POTASSIUM 2.8 mmol/L (3.5-5.1)
[2018-07-06 09:53] LABS: ALANINE AMINOTRANSFERASE 25 U/L (16-63); ALKALINE PHOSPHATASE 110 U/L (50-136); ASPARTATE AMINOTRANSFERASE 16 U/L (15-37); BILIRUBIN,DIRECT 0.1 mg/dL (0.0-0.2); BILIRUBIN,TOTAL 0.4 mg/dL (0.2-1.0); ETHANOL < 3 MG/DL (0-0); TOTAL PROTEIN, SERUM 7.5 g/dL (6.4-8.2)
--- NOTE | 2018-07-06 10:00 | NUR ---
Pt moved to room 3, security systems technician remains at bedside for 1:1 observation.
[2018-07-06] MEDS ORDERED: POTASSIUM CHLORIDE 20 MEQ TAB.PRT.SR PO ONE (10:15)
[2018-07-06] MEDS ORDERED: POTASSIUM CHLORIDE 20 MEQ TAB.PRT.SR ONE (10:27)
[2018-07-06 11:01] LABS: *BILIRUBIN,URIN NEGATIVE (NEGATIVE); *CLARITY,URINE CLEAR (CLEAR); *COLOR,URINE YELLOW (YELLOW); *KETONES,URINE NEGATIVE (NEGATIVE); *UROBILINOGEN,URINE 0.2 E.U./dl (NORMAL); LEUKOCYTE ESTERASE ,URINE NEGATIVE (NEGATIVE); NITRITE, URINE NEGATIVE (NEGATIVE); UGLUCOSE NEGATIVE (NEGATIVE)
[2018-07-06 11:03] LABS: *BLOOD, URINE TRACE INTACT (NEGATIVE)
[2018-07-06 11:14] LABS: MUCUS,URINE FEW /LPF (0-FEW); SQUAMOUS EPITHELIAL CELL,UR NONE SEEN /HPF (NONE SEEN)
[2018-07-06 11:15] LABS: *AMPHETAMINE, URINE NEGATIVE (NEGATIVE); *BARBITURATE, URINE NEGATIVE (NEGATIVE); *CANNABINOID, URINE POSITIVE (NEGATIVE); *COCCAINE, URINE NEGATIVE (NEGATIVE); *OPIATE, URINE NEGATIVE (NEGATIVE); *PHENCYCLIDINE SCREEN,URINE NEGATIVE (NEGATIVE); BACTERIA,URINE NONE SEEN /HPF (NONE SEEN); RBC,URINE 0-3 /HPF (0-3); WBC,URINE 0-3 /HPF (0-3)
--- NOTE | 2018-07-06 12:00 | NUR ---
MAYA, CRISIS TEAM RN HERE FOR EVALUATION AND POSSIBLE PLACEMENT... PATIENT IS AWAKE AND ALERT. HE DRANK WATER AND STATES HE IS NOT HUNGRY NOW...
[2018-07-06] MEDS ORDERED: CLONAZEPAM 0.5 MG TABLET PO ONE (12:45)
[2018-07-06] MEDS ORDERED: QUETIAPINE FUMARATE 25 MG TABLET PO ONE (12:45)
--- NOTE | 2018-07-06 12:45 | NUR ---
pt fifnished the [facility] tray with good apetite.
[2018-07-06] MEDS ORDERED: QUETIAPINE FUMARATE 200 MG TABLET ONE (12:52)
[2018-07-06] MEDS ORDERED: CLONAZEPAM 1 MG TABLET ONE ×2 (12:52→12:54)
--- NOTE | 2018-07-06 12:55 | NUR ---
pt yelling and cursing inspite of all the comfort and deescalating measures provided.
[2018-07-06] MEDS ORDERED: diphenhydrAMINE 50 MG/1 ML VIAL IM ONE (13:00)
[2018-07-06] MEDS ORDERED: LORAZEPAM 2 MG/1 ML VIAL IM ONE (13:00)
[2018-07-06] MEDS ORDERED: HALOPERIDOL LACTATE 5 MG/1 ML VIAL IM ONE (13:00)
--- NOTE | 2018-07-06 13:00 | NUR ---
pt is promissing to be calm and cooperative at this point. hold on the antipsychotic med at this point and continue to observe the pt.
[2018-07-06 13:02] LABS: ACETAMINOPHEN < 2.0 ug/mL (10-30)
--- NOTE | 2018-07-06 13:03 | NUR ---
[facility] sandwich provided per pt request.
[2018-07-06] MEDS ORDERED: diphenhydrAMINE 50 MG/1 ML VIAL ONE (13:06)
[2018-07-06] MEDS ORDERED: HALOPERIDOL LACTATE 5 MG/1 ML VIAL ONE (13:07)
[2018-07-06] MEDS ORDERED: LORAZEPAM 2 MG/1 ML VIAL ONE (13:07)
--- NOTE | 2018-07-06 13:20 | NUR ---
PATIENT IS CALM AND COOPERATIVE NOW.
--- NOTE | 2018-07-06 14:13 | NUR ---
PATIENT IS AWAKE AND ALERT IN NO DSITRESS. HE IS CALM. [facility] STAFF HERE TO TRANSPORT HIM TO [facility]. REPORT GIVEN TO ALLIE.
== END 2018-07-06 14:24 | disposition short-term general hospital (02) ==
LOC: ER 08:39
DX: F29 Unspecified psychosis not due to a substance or known physiological condition (principal); F41.9 Anxiety disorder, unspecified; F32.9 Major depressive disorder, single episode, unspecified; F12.10 Cannabis abuse, uncomplicated; F15.10 Other stimulant abuse, uncomplicated; F11.10 Opioid abuse, uncomplicated; F17.200 Nicotine dependence, unspecified, uncomplicated; Z79.1 Long term (current) use of non-steroidal anti-inflammatories (NSAID); Z79.899 Other long term (current) drug therapy
CPT/HCPCS: 36415; 80048; 80076; 80307; 81001; 85025; 93005; 99285; G0480 ×2; G0481; A4663; J1200; J1630; J2060

== ENCOUNTER 2018-08-18 09:30 | Emergency (ER) | payer OTHER ==
[~2018-08-18] VITALS: Ht 185.4 cm; Wt 81.6 kg
[~2018-08-18 09:30] MED LIST changes: -AMIT10TA6 PO; +ASCO500P18 PO; +DIVA250T4 PO; -DIVA500T2 PO; +ERGO2000 PO; +FERR325T28 PO; +FOLI1TAB16 PO; +IBUP-1953 PO; +MIRT15TA7 PO; -MIRT45TA83 PO; -QUET100T PO; -QUET200T PO; +RANI300C PO
[2018-08-18] MEDS ORDERED: DIVALPROEX ER 500 MG TAB.SR.24H PO ONE ×2 (09:31)
[2018-08-18] MEDS ORDERED: QUETIAPINE FUMARATE 100 MG TABLET PO ONE (09:31)
[2018-08-18] MEDS ORDERED: OLANZAPINE 10 MG VIAL IM ONE ×4 (09:45→19:49)
[2018-08-18] MEDS ORDERED: diphenhydrAMINE 50 MG/1 ML VIAL IM ONE ×3 (09:45→21:00)
[2018-08-18] MEDS ORDERED: LORAZEPAM 2 MG/1 ML VIAL IM ONE ×3 (09:45→21:00)
[2018-08-18] MEDS ORDERED: LORAZEPAM 2 MG/1 ML VIAL ONE ×3 (09:47→21:02)
[2018-08-18] MEDS ORDERED: diphenhydrAMINE 50 MG/1 ML VIAL ONE ×3 (09:48→21:01)
--- NOTE | 2018-08-18 09:50 | NUR ---
Pt placed on 5150 hold (DTS) by [employer], security at bedside for 1:1 observation.
[2018-08-18] MEDS ORDERED: AMIT10TA6 PO (09:51)
--- NOTE | 2018-08-18 09:51 | NUR ---
PT IS IN ROOM #2B. DR NICHOLAS EVALUATED THE PT. PT IS UNDER [employer] OFFICERS OBSERVATION WITH LEFT AND RIGHT HANDCUFFS ON.
--- NOTE | 2018-08-18 09:54 | NUR ---
PT WAS PUT ON HOLD BY [employer] OFFICER "DANGER TO HIMSELF".
--- NOTE | 2018-08-18 09:56 | NUR ---
Called [facility] for psych eval/placement, no answer, left urgent msg.
--- NOTE | 2018-08-18 09:56 | NUR ---
Mayi harden in [facility] - 08/18/18 at 0958 by PEDRO Called [facility] for psych eval, no answer, left urgent msg.
[2018-08-18 09:58] LABS: BASOPHILS # (AUTO) 0.1 K/uL (0.0-8.0); BASOPHILS % (AUTO) 0.7 % (0.0-2.0); EOSINOPHILS % (AUTO) 0.5 % (0.0-7.0); HEMATOCRIT 35.3 % (36.7-47.1); HEMOGLOBIN 11.4 g/dL (12.5-16.3); LYMPHOCYTES # (AUTO) 0.7 K/uL (20.0-40.0); LYMPHOCYTES % (AUTO) 8.6 % (20.5-51.5); MEAN CORPUSCULAR HEMOGLOBIN 25.5 uug (23.8-33.4); MEAN CORPUSCULAR HGB CONC 32 g/dL (32.5-36.3); MEAN CORPUSCULAR VOLUME 78.8 fL (73.0-96.2); MONOCYTES # (AUTO) 0.4 K/uL (2.0-10.0); MONOCYTES % (AUTO) 5.1 % (0.0-11.0); NEUTROPHILS # (AUTO) 7.3 K/uL (1.8-8.9); NEUTROPHILS % (AUTO) 85.1 % (38.5-71.5); PLATELET COUNT (AUTO) 268 K/uL (152-348); RED BLOOD CELL COUNT(AUTO) 4.49 MIL/uL (4.06-5.63); WHITE BLOOD COUNT (AUTO) 8.6 K/uL (3.6-10.2)
[2018-08-18 10:05] LABS: CARBON DIOXIDE 23 mmol/L (21-32); CHLORIDE 111 mmol/L (98-107); CREATININE 1.4 mg/dL (0.6-1.3); GLUCOSE 109 mg/dL (74-106); POTASSIUM 3.3 mmol/L (3.5-5.1); UREA NITROGEN, BLOOD 19 mg/dL (7-18)
[2018-08-18 10:20] LABS: ALANINE AMINOTRANSFERASE 19 U/L (16-63); ALKALINE PHOSPHATASE 107 U/L (50-136); ASPARTATE AMINOTRANSFERASE 14 U/L (15-37); BILIRUBIN,DIRECT 0.1 mg/dL (0.0-0.2); BILIRUBIN,TOTAL 0.3 mg/dL (0.2-1.0); ETHANOL 4 MG/DL (0-0); TOTAL PROTEIN, SERUM 7.3 g/dL (6.4-8.2)
[2018-08-18 10:21] LABS: ACETAMINOPHEN < 2.0 ug/mL (10-30)
--- NOTE | 2018-08-18 11:43 | NUR ---
CRISIS MENTAL HYGIENIST TRENA CALLED [facility] , SHE IS COMMING TO EVALUATED THE PT, WITH MARII TIME 30 MINUTES.
--- NOTE | 2018-08-18 11:44 | NUR ---
RESTRAINES WERE REMOVED ACCORDING TO DR NICHOLAS ORDER. PT IS RESTING IN BED COMFORTABLY . NO S/S OF ACUTE DISTRESS AT THIS TIME. SECURITY AT THE BEDSIDE.
--- NOTE | 2018-08-18 12:54 | NUR ---
CRASIS CREATIVE PERFUMER TRENA EVALUATED THE PT.
[2018-08-18 15:50] LABS: *BILIRUBIN,URIN NEGATIVE (NEGATIVE); *BLOOD, URINE 2+ (NEGATIVE); *CLARITY,URINE SLIGHTLY CLOUDY (CLEAR); *COLOR,URINE LIGHT YELLOW (YELLOW); *KETONES,URINE NEGATIVE (NEGATIVE); *UROBILINOGEN,URINE 0.2 E.U./dl (NORMAL); LEUKOCYTE ESTERASE ,URINE TRACE (NEGATIVE); NITRITE, URINE NEGATIVE (NEGATIVE); PH,URINE 6.5 (5.0-8.0); UGLUCOSE NEGATIVE (NEGATIVE)
[2018-08-18 16:02] LABS: BACTERIA,URINE NONE SEEN /HPF (NONE SEEN); SQUAMOUS EPITHELIAL CELL,UR FEW /HPF (NONE SEEN)
[2018-08-18 16:09] LABS: *AMPHETAMINE, URINE NEGATIVE (NEGATIVE); *BARBITURATE, URINE NEGATIVE (NEGATIVE); *CANNABINOID, URINE POSITIVE (NEGATIVE); *COCCAINE, URINE NEGATIVE (NEGATIVE); *OPIATE, URINE POSITIVE (NEGATIVE); *PHENCYCLIDINE SCREEN,URINE NEGATIVE (NEGATIVE)
--- NOTE | 2018-08-18 18:49 | NUR ---
Pt moved from room 2 to room 3. Pt ambulated to room 3 with steady gait, vp security remains at bedside for 1:1 observation. Pt is calm and cooperative at this time. Pending re-eval by Lilian (psych) per report.
--- NOTE | 2018-08-18 19:37 | NUR ---
Patient in room with [facility] kiana doing 1:1. Patient is labile. Cursing at [facility] and stating "I going to bust out of here." Patient has to be redirected multiple times not to yell or curse. Elizabeth from PET called back and will re-eval patient when patient is more calm. Possible transfer to [facility] in am when bed is available.
--- NOTE | 2018-08-18 19:45 | NUR ---
Patient yelling curse words towards staff members. Unable to redirect patient. Patient is esculating,pacing in room. Dr Landis mad aware.
--- NOTE | 2018-08-18 20:55 | NUR ---
Patient pacing room. Redirected mutiple times by hospital secrudiana cedeno and staff nurse to not yell and curse. Verbally abusive. Dr Denney made aware
[2018-08-18] MEDS ORDERED: HALOPERIDOL LACTATE 5 MG/1 ML VIAL IM ONE (21:00)
--- NOTE | 2018-08-18 21:00 | NUR ---
PROVIDED PATIENT WITH MEAL AND JUICE
[2018-08-18] MEDS ORDERED: HALOPERIDOL LACTATE 5 MG/1 ML VIAL ONE (21:02)
--- NOTE | 2018-08-18 22:30 | NUR ---
PATIENT SLEEPING WITH NO DISTRESS NOTED
--- NOTE | 2018-08-19 01:00 | NUR ---
PATIENT SLEEPING ON GURNY WITH NO DISTRESS NOTED.
--- NOTE | 2018-08-19 06:00 | NUR ---
Patient awake. ambulated to restroom with steady gait. No distress noted.
--- NOTE | 2018-08-19 07:08 | NUR ---
PT START PACING IN THE ROOM, STATING WANT TO LEAVE. FLOWER STRIPPER DAMON NOTIFIED FOR 1 TO 1 SITTER. NONE AVAILABLE AT THIS TIME. HOSPITAL PLANT OPERATIONS VICE PRESIDENT WILL BE SITTING W/ PT.
--- NOTE | 2018-08-19 07:30 | NUR ---
SPOKE TO NS MANAGER EMERGENCY DEPARTMENT FOR PT'S 1 TO 1 STRAINER CLEANER, SINCE NOBODY AVAILABLE SOFAR. PT PACING IN THE ROOM AND SPEAKING VERY LOUD ON THE PHONE. ORDERED BREAKFAST TRAY FOR PT.
--- NOTE | 2018-08-19 07:35 | NUR ---
SPOKE TO RAFAEL HOLLIS PET DELIVERY ASSISTANT VP OF DIGITAL MARKETING. RAFAEL SUGGESTED TO CALL DEVON, SINCE SHE WAS HIS DELIVERY ASSISTANT YESTERDAY. PLACE A CALL TO DEVON AND LEFT A MESSAGE.
--- NOTE | 2018-08-19 07:43 | NUR ---
CHIEF CLERK FOR 1 TO 1 AT THE BEDSIDE FOR OBSERVATION.
[2018-08-19] MEDS ORDERED: HALOPERIDOL LACTATE 5 MG/1 ML VIAL IM ONE (07:45)
[2018-08-19] MEDS ORDERED: LORAZEPAM 2 MG/1 ML VIAL IM ONE (07:45)
--- NOTE | 2018-08-19 07:55 | NUR ---
Pt agitated, yelling and threatening staff. Code Deondre called. Security and nursing supervisor welding equipment repairer on scene.
--- NOTE | 2018-08-19 08:12 | NUR ---
DEVON COOK RN, PET MEDICAL LAB TECH INSTRUCTOR CALLED BACK, UNABLE TO FOLLOW PT'S CASE. MESSAGE LEFT W/ SIMONE, WELL FAZAL ORLANDO LCSW.
--- NOTE | 2018-08-19 08:20 | NUR ---
PROVIDED BREAKFAST, PT ATE 2 TRAYS W/ GOOD APPETITE.
--- NOTE | 2018-08-19 08:20 | NUR ---
RECIEVED CALL FROM FAZAL ORLANDO LCSW, REGARDING PT'S PLACEMENT. AWAITING FOR RE EVAL/PLACEMENT.
[2018-08-19] MEDS ORDERED: OLANZAPINE 5 MG TABLET PO ONE (08:30)
--- NOTE | 2018-08-19 08:30 | NUR ---
SPOKE TO FAZAL ORLANDO LCSW, NO BED AVAILABLE IN [facility]. SHE WILL FOLLOW UP W/ PT LATER TODAY.
[2018-08-19] MEDS ORDERED: OLANZAPINE 5 MG TABLET ONE (08:32)
--- NOTE | 2018-08-19 08:45 | NUR ---
DR KOCH AT THE BEDSIDE FOR RE- EVAL.
[2018-08-19] MEDS ORDERED: DIVALPROEX 500 MG TABLET.DR PO ONE (09:05)
[2018-08-19] MEDS ORDERED: CLONAZEPAM 1 MG TABLET ONE ×2 (09:06→17:30)
[2018-08-19] MEDS ORDERED: QUETIAPINE FUMARATE 100 MG TABLET ONE ×2 (09:06→17:30)
[2018-08-19] MEDS: DIVALPROEX ER 500 MG TAB.SR.24H PO SCH ×2 (09:08→17:28)
[2018-08-19] MEDS: QUETIAPINE FUMARATE 25 MG TABLET PO SCH ×3 (09:08→17:28)
[2018-08-19] MEDS: CLONAZEPAM 0.5 MG TABLET PO SCH ×3 (09:08→17:28)
--- NOTE | 2018-08-19 09:37 | NUR ---
Patient is resting comfortably in bed with eyes closed, NAD noted. 1 to 1 home security professional at the bedside for safety observation. Continue w/ close monitoring.
--- NOTE | 2018-08-19 10:14 | NUR ---
10:00am: Called [facility] [phone] to refer patient for admission. Was told to call back in 20-30 minutes and ask for Marbella. INDRA to follow-up.
--- NOTE | 2018-08-19 10:16 | NUR ---
10:10am: INDRA called [facility] [phone] for assistance with inpatient psychiatric placement for this patient. Was asked to fax patient's records.
--- NOTE | 2018-08-19 10:29 | NUR ---
INDRA faxed patient's records to the Call Center [facility] (fax #[phone]; tel # [phone]). Faxed records included patient's face sheet, copy of hold, ER physician's report, speech and language clinician's report, and labs.
--- NOTE | 2018-08-19 10:35 | NUR ---
10:30am: INDRA called [facility] back, and spoke with Marbella ([phone]). Marbella informed this SW that all intake referrals go through [facility], and asked SW to call [facility]. INDRA called [facility] [phone] and spoke with Gaviota. Gaviota asked SW to fax patient's records to her for review. INDRA faxed patients face sheet, copy of the 5150 DTS hold, primary clinician's report, ER physician's report, and labs to fax # [phone]. Gaviota stated that the review process may take about an hour, but that INDRA could also follow-up if SW does not receive a call back. INDRA agreed.
--- NOTE | 2018-08-19 11:18 | NUR ---
Patient is resting comfortably in bed with eyes closed, NAD noted. 1 to 1 security officer supervisor at the bedside.
--- NOTE | 2018-08-19 11:59 | NUR ---
11:55am: INDRA received a call from Kusum at [facility] [phone] (alternate # [phone]) who stated that they had faxed patient's referral to 5 different hospitals, and were waiting to hear back from them. Kusum stated she will call this SW back with updates, as she hears back from the different locations. INDRA agreed.
--- NOTE | 2018-08-19 12:20 | NUR ---
Lunch tray provided, pt ate well. No acute distress noted.
--- NOTE | 2018-08-19 12:55 | NUR ---
Patient is resting comfortably in bed with eyes closed.
--- NOTE | 2018-08-19 13:11 | NUR ---
Pt walked to bathroom w/ steady gait, information security standby.
--- NOTE | 2018-08-19 14:13 | NUR ---
Patient is resting comfortably in bed with eyes closed, NAD noted.
--- NOTE | 2018-08-19 16:13 | NUR ---
Sonja Dickson at the bedside for eval.
--- NOTE | 2018-08-19 16:35 | NUR ---
Received call from Rustam from [facility] Kelin who stated they have received pt's info but they do not have any beds available.
--- NOTE | 2018-08-19 18:20 | NUR ---
Dinner tray provided. Pt ate w/ good appetite.
--- NOTE | 2018-08-19 19:16 | NUR ---
Received report from Rene SALGADO, assumed care of pt., pt. resting in bed w/ eyes closed, sitter at door,
--- NOTE | 2018-08-19 20:26 | NUR ---
Pt. up to use restroom, ambulates w/ steady gait,
--- NOTE | 2018-08-20 00:32 | NUR ---
Erick from [facility] call center @ [employer] called @ [phone] to update on placement for pt., no beds available at this time,
[2018-08-20] MEDS ORDERED: CLONAZEPAM 0.5 MG TABLET PO ONE ×2 (00:45→01:00)
[2018-08-20] MEDS ORDERED: CLONAZEPAM 1 MG TABLET ONE (00:53)
[2018-08-20] MEDS ORDERED: QUETIAPINE FUMARATE 100 MG TABLET ONE (00:53)
[2018-08-20] MEDS ORDERED: QUETIAPINE FUMARATE 25 MG TABLET PO ONE (01:00)
--- NOTE | 2018-08-20 02:25 | NUR ---
Pt. repeatedly gets up to use restroom, states he has diarrhea,
--- NOTE | 2018-08-20 03:16 | NUR ---
Pt. resting in bed w/ eyes closed, sitter at bedside, NAD
--- NOTE | 2018-08-20 03:49 | NUR ---
Pt. up to use restroom again, walks w/ steady gait, NAD
--- NOTE | 2018-08-20 05:22 | NUR ---
Pt. up to use restroom, ambulates w/ steady gait,
--- NOTE | 2018-08-20 05:51 | NUR ---
Pt. given paper sack turkey sandwich lunch w/ juice,
--- NOTE | 2018-08-20 07:02 | NUR ---
Report given to Monika SALGADO,
--- NOTE | 2018-08-20 07:45 | NUR ---
PT AWAKE, WALKING TO BATHROOM WITH STEADY GAIT.
--- NOTE | 2018-08-20 07:54 | NUR ---
TALKED TO JAXSON ORLANDO REGARDING PT PLACEMENT. JAXSON WILL BE AT BEDSIDE SOON
--- NOTE | 2018-08-20 08:03 | NUR ---
HOSPITAL TRAY PROVIDED FOR PT. PT FINISHED THE TRAY WITH GOOD APETITE.
--- NOTE | 2018-08-20 08:23 | NUR ---
PER JAXSON, [facility] WILL ACCEPT THE PT. [facility] WILL CALL BACK WITH THE DATAILS, SUMMERY REPORT AND COPY OF HOLD FAXED AGAIN TO [facility] AT [phone] PER REQUEST.
[2018-08-20] MEDS: DIVALPROEX ER 500 MG TAB.SR.24H PO SCH (08:31)
[2018-08-20] MEDS: CLONAZEPAM 0.5 MG TABLET PO SCH ×2 (08:32→13:38)
[2018-08-20] MEDS: QUETIAPINE FUMARATE 25 MG TABLET PO SCH ×2 (08:32→13:38)
--- NOTE | 2018-08-20 08:57 | NUR ---
PT REFUSED ZYPREXA, SAYS IT GIVES HIM DIZZINESS AND SOB. PT REQUESTING ATIVAN.
--- NOTE | 2018-08-20 08:58 | NUR ---
DR. PABLO BEDSIDE.
[2018-08-20] MEDS ORDERED: OLANZAPINE 5 MG TABLET PO ONE (09:00)
[2018-08-20] MEDS ORDERED: LORAZEPAM 0.5 MG TABLET PO ONE (09:00)
--- NOTE | 2018-08-20 12:16 | NUR ---
called [facility] to follow up on the bed status, bed not available at this time.
--- NOTE | 2018-08-20 13:00 | NUR ---
inez from [facility] called, pt accepted by dr. martin, going to [place] [id number] [address], report number is [phone]
--- NOTE | 2018-08-20 13:05 | NUR ---
called aldo, livia number [phone], 30 minutes
--- NOTE | 2018-08-20 13:43 | NUR ---
hospital lunch provided for pt.
--- NOTE | 2018-08-20 14:00 | NUR ---
aldo at bedside to transfer the pt to [facility].
--- NOTE | 2018-08-20 14:30 | NUR ---
gave report to wig maker at [facility].
== END 2018-08-20 14:38 | disposition short-term general hospital (02) ==
LOC: ER 09:30
DX: F29 Unspecified psychosis not due to a substance or known physiological condition (principal); F41.9 Anxiety disorder, unspecified; F32.9 Major depressive disorder, single episode, unspecified; N17.9 Acute kidney failure, unspecified; F17.200 Nicotine dependence, unspecified, uncomplicated; F11.10 Opioid abuse, uncomplicated; F12.10 Cannabis abuse, uncomplicated; Z79.899 Other long term (current) drug therapy; Z79.1 Long term (current) use of non-steroidal anti-inflammatories (NSAID)
CPT/HCPCS: 36415; 80048; 80076; 80307; 81000; 81001; 84443; 85025; 85730; 96372 ×11; 99285; G0480 ×2; G0481; J1200 ×3; J1630 ×2; J2060 ×4; A4663; J2358

== ENCOUNTER 2018-12-17 05:25 | Emergency (ER) | payer OTHER ==
[~2018-12-17] VITALS: Ht 177.8 cm; Wt 88.0 kg
[~2018-12-17 05:25] MED LIST changes: +AMIT10TA6 PO
--- NOTE | 2018-12-17 05:44 | NUR ---
Patient BIB [facility] for c/o insominia for 4 days. Patient AOx4. In no acute distress. Respiration even and unlabored. No /Gi concern.
--- NOTE | 2018-12-17 06:06 | NUR ---
Dr. Fernández on bedside for MSE.
[2018-12-17 06:20] LABS: BASOPHILS % (AUTO) 0.3 % (0.0-2.0); EOSINOPHILS % (AUTO) 0.2 % (0.0-7.0); HEMATOCRIT 39.1 % (36.7-47.1); HEMOGLOBIN 12.6 g/dL (12.5-16.3); LYMPHOCYTES # (AUTO) 0.8 K/uL (20.0-40.0); LYMPHOCYTES % (AUTO) 9.6 % (20.5-51.5); MEAN CORPUSCULAR HEMOGLOBIN 26.3 uug (23.8-33.4); MEAN CORPUSCULAR HGB CONC 32 g/dL (32.5-36.3); MEAN CORPUSCULAR VOLUME 81.8 fL (73.0-96.2); MONOCYTES # (AUTO) 0.4 K/uL (2.0-10.0); MONOCYTES % (AUTO) 4.6 % (0.0-11.0); NEUTROPHILS # (AUTO) 7.1 K/uL (1.8-8.9); NEUTROPHILS % (AUTO) 85.3 % (38.5-71.5); PLATELET COUNT (AUTO) 354 K/uL (152-348); RED BLOOD CELL COUNT(AUTO) 4.79 MIL/uL (4.06-5.63); WHITE BLOOD COUNT (AUTO) 8.4 K/uL (3.6-10.2)
[2018-12-17 06:30] LABS: CARBON DIOXIDE 24 mmol/L (21-32); CHLORIDE 102 mmol/L (98-107); CREATININE 1.6 mg/dL (0.6-1.3); GLUCOSE 86 mg/dL (74-106); POTASSIUM 3.2 mmol/L (3.5-5.1); UREA NITROGEN, BLOOD 22 mg/dL (7-18)
[2018-12-17 06:37] LABS: ALANINE AMINOTRANSFERASE 24 U/L (16-63); ALKALINE PHOSPHATASE 139 U/L (50-136); ASPARTATE AMINOTRANSFERASE 17 U/L (15-37); BILIRUBIN,DIRECT 0.2 mg/dL (0.0-0.2); BILIRUBIN,TOTAL 0.6 mg/dL (0.2-1.0); TOTAL PROTEIN, SERUM 8.4 g/dL (6.4-8.2)
[2018-12-17 06:43] LABS: THYROID STIMULATING HORMONE 0.782 mIU/mL (0.358-3.740)
[2018-12-17 06:45] LABS: ETHANOL < 3 MG/DL (0-0)
--- NOTE | 2018-12-17 07:05 | NUR ---
Report given to day shift NAOMI Ventura.
--- NOTE | 2018-12-17 07:07 | NUR ---
[facility] provided for pt.
--- NOTE | 2018-12-17 08:20 | NUR ---
PT SCREAMING AND CURSING. I ATTENDED TO THE PT'S BEDSIDE BUT PT BECAME INCREASINGLY AGITATED AND CURSING.
[2018-12-17] MEDS ORDERED: OLANZAPINE 5 MG TABLET ONE (08:25)
--- NOTE | 2018-12-17 08:30 | NUR ---
HOSPITAL SECURITY STAFF CALLED FOR SECURITY STANDBY.
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
--- NOTE | 2018-12-17 08:34 | NUR ---
called code martínez for pt.
--- NOTE | 2018-12-17 08:37 | NUR ---
PT SCREAMING "I WANT TO GET THE FUCK OUT OF HERE". PT ESCORTED OUT OF THE ED BY HOSPITAL SECURITY STAFF.
--- NOTE | 2018-12-17 08:38 | NUR ---
ELIAS BRITO AWARE.
[2018-12-17] MEDS ORDERED: OLANZAPINE 5 MG TABLET PO ONE (08:45)
== END 2018-12-17 08:51 | disposition home or self-care (01) ==
LOC: ER 05:28
DX: F31.9 Bipolar disorder, unspecified (principal); F41.9 Anxiety disorder, unspecified; F17.200 Nicotine dependence, unspecified, uncomplicated; F12.10 Cannabis abuse, uncomplicated; F11.10 Opioid abuse, uncomplicated; F15.10 Other stimulant abuse, uncomplicated; Z79.1 Long term (current) use of non-steroidal anti-inflammatories (NSAID); Z79.899 Other long term (current) drug therapy
CPT/HCPCS: 36415; 80048; 80076; 84443; 85025; 99284; G0480; A4663

== ENCOUNTER 2018-12-18 | Emergency (ER) | payer OTHER ==
[~2018-12-18] VITALS: Ht 182.9 cm; Wt 87.5 kg
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
--- NOTE | 2018-12-18 00:25 | NUR ---
PT ELOPED BEFORE BEING SEEN BY
== END 2018-12-18 00:33 | disposition left against medical advice (07) ==
LOC: ER 00:05
DX: Z53.21 Procedure and treatment not carried out due to patient leaving prior to being seen by health care provider (principal)
CPT/HCPCS: A4663

== ENCOUNTER 2019-03-02 01:17 | Emergency (ER) | payer OTHER ==
[~2019-03-02] VITALS: Ht 182.9 cm; Wt 83.9 kg
[2019-03-02] MEDS ORDERED: LORAZEPAM 0.5 MG TABLET PO ONE (01:30)
[2019-03-02] MEDS ORDERED: HYDROCODONE/APAP 10-325 MG TABLET ONE (01:30)
[2019-03-02] MEDS ORDERED: LORAZEPAM 1 MG TABLET ONE (01:30)
[2019-03-02] MEDS ORDERED: HYDROCODONE/APAP 10-325 MG TABLET PO ONE (01:30)
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
--- NOTE | 2019-03-02 01:35 | NUR ---
Patient in room with [employer] handcuff to jared. Patient at times cursing at hospital secruity kiana, threatening staff member.
--- NOTE | 2019-03-02 01:48 | NUR ---
Patient is medically cleared by Dr Ac to be Book by [employer].
--- NOTE | 2019-03-02 02:06 | NUR ---
Patient discharged in stable conditon under [employer] surveillance dual rate officer #[id number] with handcuff. Written and verbal after care instructions given.
[2019-03-02 02:08] VITALS: BP 135/79
== END 2019-03-02 02:09 ==
LOC: ER 01:18
DX: G89.4 Chronic pain syndrome (principal); M79.661 Pain in right lower leg; F17.200 Nicotine dependence, unspecified, uncomplicated; F41.9 Anxiety disorder, unspecified; F32.9 Major depressive disorder, single episode, unspecified; F11.10 Opioid abuse, uncomplicated; F15.10 Other stimulant abuse, uncomplicated; F12.10 Cannabis abuse, uncomplicated
CPT/HCPCS: 73590; A4663